=== PATIENT | male | born 1970 | race Caucasian/White ===

== ENCOUNTER → 2018-05-18 | Outpatient (CLI) | payer OTHER ==
--- NOTE | 2018-05-18 22:37 | RAD ---
Left lower extremity arterial Doppler dated 05/18/2018. No comparison available. CLINICAL INDICATION: Left great toe discoloration and pain for one week. FINDINGS: Grayscale, color-flow and spectral waveform analysis performed. No significant plaque throughout. Normal triphasic waveforms. No focal stenosis. The velocity measurements are within the range of normal. IMPRESSION: No evidence of hemodynamically significant left lower extremity arterial stenosis. Electronically signed by: Brendan Acosta MD (05/18/2018 10:33 PM) [id number]
== END | disposition home or self-care (01) ==
LOC: US 21:32
PROVIDERS: ATTEND Nurse Practitioner Acute Care
DX: M79.675 Pain in left toe(s) (principal)
CPT/HCPCS: 93926